=== PATIENT | male | born 1965 | race Native Hawaiian/Other Pacific Islander ===

== ENCOUNTER 2020-07-05 15:40 | Outpatient (CLI) | payer BC, OTHER ==
[~2020-07-05 15:40] MED LIST: LISI20TA11 PO
== END 2020-07-05 21:17 | disposition home or self-care (01) ==
LOC: INF 15:40
PROVIDERS: ATTEND Internal Medicine
DX: Z23 Encounter for immunization (principal)
CPT/HCPCS: 96372